=== PATIENT | male | born 1950 | race Caucasian/White ===

== ENCOUNTER 2019-01-18 18:43 | Emergency (ER) | payer MEDICAID ==
[~2019-01-18] VITALS: Ht 162.6 cm; Wt 68.0 kg
--- NOTE | 2019-01-18 18:50 | NUR ---
ED Nurse Note: pt was brought in to ER by ambulance from Dialysis center due to chest pain 05/21. pt aao x4 and calm and cooperative. waiting to be seen by doctor in bed.
[2019-01-18] MEDS ORDERED: Nitroglycerin 2% oint pkt TOPIC ONE (19:00)
--- NOTE | 2019-01-18 19:00 | NUR ---
ED Nurse Note: ERMD at bedside and talking to the pt at this moment.
[2019-01-18] MEDS ORDERED: Morphine Sulfate 4mg/ml Inj (IV USE ONLY) IVP ONE (19:15)
[2019-01-18] MEDS ORDERED: ATORVASTATIN CA10 MG ORAL (19:15)
[2019-01-18] MEDS ORDERED: PLAVIX75 MG ORAL (19:15)
[2019-01-18] MEDS ORDERED: CALCIUM ACETAT667 MG PO (19:15)
[2019-01-18 19:25] VITALS: BP 135/79
--- NOTE | 2019-01-18 19:29 | NUR ---
HAND-OFF: Report given to KEM Adams. no orders have been carried yet.
[2019-01-18 20:05] LABS: BASOPHILS % (AUTO) 1.4 % (0.0-2.0); EOSINOPHILS % (AUTO) 3.6 % (0.0-3.0); HEMATOCRIT 33.9 % (42.0-52.0); HEMOGLOBIN 10.4 G/DL (14.2-18.0); LYMPHOCYTES % (AUTO) 13.9 % (20.0-45.0); MEAN CORPUSCULAR VOLUME 88 FL (80-99); MONOCYTES % (AUTO) 13.6 % (1.0-10.0); NEUTROPHILS % (AUTO) 67.5 % (45.0-75.0); PLATELET COUNT 344 K/UL (150-450); RED BLOOD COUNT 3.86 M/UL (4.70-6.10); RED CELL DISTRIBUTION WIDTH 14.8 % (11.6-14.8); WHITE BLOOD COUNT 4.2 K/UL (4.8-10.8)
[2019-01-18 20:10] LABS: INR 1.1 (0.9-1.1)
[2019-01-18 20:14] LABS: ANION GAP 5 mmol/L (5-15); BLOOD UREA NITROGEN 17 mg/dL (7-18); CALCIUM 9.4 MG/DL (8.5-10.1); CARBON DIOXIDE 34 MMOL/L (21-32); CHLORIDE 98 MMOL/L (98-107); CREATININE 2.8 MG/DL (0.55-1.30); POTASSIUM 3.8 MMOL/L (3.5-5.1); SODIUM 137 MMOL/L (136-145)
[2019-01-18 20:37] LABS: ALANINE AMINOTRANSFERASE 12 U/L (12-78); ALBUMIN 2.9 G/DL (3.4-5.0); ALBUMIN/GLOBULIN RATIO 0.6 (1.0-2.7); ALKALINE PHOSPHATASE 1355 U/L (46-116); ASPARTATE AMINO TRANSFERASE 25 U/L (15-37); BILIRUBIN,TOTAL 2.1 MG/DL (0.2-1.0); CREATINE KINASE 45 U/L (26-308)
[2019-01-18 20:40] LABS: BILIRUBIN,DIRECT 1.3 MG/DL (0.0-0.3)
--- NOTE | 2019-01-18 20:50 | Diagnostic Imaging Report ---
EXAM: XR Chest, 1 View CLINICAL HISTORY: CP TECHNIQUE: Frontal view of the chest. COMPARISON: No relevant prior studies available. FINDINGS: Lungs: Low lung volumes with bronchovascular crowding. No consolidation, pleural effusion, or pneumothorax. Pleural space: See above. Heart: Unremarkable. No cardiomegaly. Mediastinum: Unremarkable. Bones/joints: Sternotomy and mediastinal operative findings. IMPRESSION: 1. Low lung volumes with bronchovascular crowding. 2. No acute cardio pulmonary disease otherwise seen. 3. If there is continued concern recommend PA and lateral chest radiographs
--- NOTE | 2019-01-18 21:27 | NUR ---
Spoke with Brielle - pillowcase cleaner- updated information given- will call us back for MD to MD for possible transfer to [facility].
--- NOTE | 2019-01-18 21:34 | NUR ---
spoke with at [facility]. Will call us with destination and transport information.
[2019-01-18 21:55] VITALS: BP 124/58
--- NOTE | 2019-01-18 21:56 | NUR ---
ER Nurse Note: Pt calm, cooperative, no signs of distress. No complains of pain, n/v. All orders completed per ERMD orders. All safety measures met; will continue to montior.
--- NOTE | 2019-01-18 22:21 | Emergency Room Report ---
History of Present Illness General Chief Complaint: Chest Pain Source: Patient, EMS Present Illness HPI The patient was finishing dialysis and started having left-sided chest pain. He felt it aching and sharp. He was 9/10 radiating towards his left shoulder. Paramedics were summoned and gave the patient aspirin and nitroglycerin. The pain was reduced to a 5/10 and then he refused more pain medication at that time. He denies having heart attacks in the past but also denies having cardiac evaluation recently. There were no other problems with dialysis. He denies fevers or chills. He's been nauseated and not eating well for several days. He denies vomiting recently. He's had increased and urine production recently without dysuria. The patient is a diabetic and has a wound on his left foot. This is been stable and getting local care. He denies any calf pain or edema. Although the patient denies cardiac procedures, he is post CABG based upon his x -ray. Allergies: Coded Allergies: No Known Allergies (Unverified , 01/18/19) Patient History Past Medical History: see triage record Past Surgical History: CABG Social History: Denies: smoking, alcohol use, drug use Social History Narrative assisted living Reviewed Nursing Documentation: PMH: Agreed; PSxH: Agreed Nursing Documentation-PMH Hx Cardiac Problems: Yes - CHF Hx Hypertension: No - dialysis, ESRD Review of Systems All Other Systems: negative except mentioned in HPI Physical Exam Vital Signs Date Time Temp Pulse Resp B/P (MAP) Pulse Ox O2 Delivery O2 Flow Rate FiO2 01/18/19 18:35 98.6 69 18 144/98 99 Room Air Sp02 EP Interpretation: reviewed, normal General Appearance: no apparent distress, GCS 15, Chronically Ill Head: normocephalic, atraumatic Eyes: bilateral eye PERRL, bilateral eye conjunctivae pale ENT: moist mucus membranes Neck: supple Respiratory: chest non-tender, lungs clear, normal breath sounds Cardiovascular #1: regular rate, rhythm, no edema Cardiovascular #2: 2+ radial (R) - thrill upper arm fistula, 2+ radial (L) Gastrointestinal: normal bowel sounds, non tender, soft, no mass Genitourinary: no CVA tenderness Musculoskeletal: back normal, digits/nails normal, no calf tenderness, Kendall's Sign negative Neurologic: oriented x3, grossly normal Psychiatric: mood/affect normal Skin: pallor, other - ulcer L foot Medical Decision Making Diagnostic Impression: Primary Impression: Chest pain Qualified Codes: R07.9 - Chest pain, unspecified Additional Impression: ESRD (end stage renal disease) on dialysis ER Course Patient with high risk factors presents with left-sided chest pain after dialysis relieved in part with aspirin and nitrates. Differential includes acute myocardial infarction, acute coronary syndrome, costochondritis, pneumothorax, pulmonary embolus amongst others. Based on his physical exam: embolus is less likely. Patient will be evaluated with EKG, chest x-ray and labs. Patient be treated with nitrates and morphine. He received aspirin in the field. EKG with left bundle branch block. Chest x-ray with mild reversal of flow and evidence of previous coronary artery bypass graft surgery. Labs significant for negative troponin, normal white count, anemia and elevated BUN/creatinine. In addition BNP is elevated. Patient is pain-free with medication here. However because of the high risk factors the patient needs to have continued observation for acute coronary syndrome. Intermittently bradycardic, unable to give metoprolol. As recent dialysis with heparin, this is also held. The patient was presented to Dr. Gutierrez who accepts the patient in transfer at [facility]. Laboratory Tests Test 01/18/19 19:23 White Blood Count 4.2 K/UL (4.8-10.8) L Red Blood Count 3.86 M/UL (4.70-6.10) L Hemoglobin 10.4 G/DL (14.2-18.0) L Hematocrit 33.9 % (42.0-52.0) L Mean Corpuscular Volume 88 FL (80-99) Mean Corpuscular Hemoglobin 27.0 PG (27.0-31.0) Mean Corpuscular Hemoglobin Concent 30.8 G/DL (32.0-36.0) L Red Cell Distribution Width 14.8 % (11.6-14.8) Platelet Count 344 K/UL (150-450) Mean Platelet Volume 5.5 FL (6.5-10.1) L Neutrophils (%) (Auto) 67.5 % (45.0-75.0) Lymphocytes (%) (Auto) 13.9 % (20.0-45.0) L Monocytes (%) (Auto) 13.6 % (1.0-10.0) H Eosinophils (%) (Auto) 3.6 % (0.0-3.0) H Basophils (%) (Auto) 1.4 % (0.0-2.0) Prothrombin Time 11.7 SEC (9.30-11.50) H Prothrombin Time INR 1.1 (0.9-1.1) PTT 31 SEC (23-33) Sodium Level 137 MMOL/L (136-145) Potassium Level 3.8 MMOL/L (3.5-5.1) Chloride Level 98 MMOL/L (98-107) Carbon Dioxide Level 34 MMOL/L (21-32) H Anion Gap 5 mmol/L (5-15) Blood Urea Nitrogen 17 mg/dL (7-18) Creatinine 2.8 MG/DL (0.55-1.30) H Estimate Glomerular Filtration Rate 22.8 mL/min (>60) Glucose Level 116 MG/DL (74-106) H Calcium Level 9.4 MG/DL (8.5-10.1) Total Bilirubin 2.1 MG/DL (0.2-1.0) H Direct Bilirubin 1.3 MG/DL (0.0-0.3) H Aspartate Amino Transferase (AST) 25 U/L (15-37) Alanine Aminotransferase (ALT) 12 U/L (12-78) Alkaline Phosphatase 1355 U/L (46-116) H Total Creatine Kinase 45 U/L (26-308) Troponin I 0.000 ng/mL (0.000-0.056) Pro-B-Type Natriuretic Peptide > 09411 pg/mL (0-125) H Total Protein 8.0 G/DL (6.4-8.2) Albumin 2.9 G/DL (3.4-5.0) L Globulin 5.1 g/dL Albumin/Globulin Ratio 0.6 (1.0-2.7) L EKG Diagnostic Results Rate: normal Rhythm: NSR ST Segments: no acute changes - Left bundle-branch bloc Rhythm Strip Diag. Results EP Interpretation: yes Rhythm: NSR, no PVC's, no ectopy Chest X-Ray Diagnostic Results Chest X-Ray Diagnostic Results : Chest X-Ray Ordered: Yes # of Views/Limited/Complete: 1 View Indication: Chest Pain EP Interpretation: Yes Interpretation: no effusion, no pneumothorax, other - CABG, increased arellano bilat Impression: Other Electronically Signed by: Electronically signed by Jayson Kramer MD Last Vital Signs Date Time Temp Pulse Resp B/P (MAP) Pulse Ox O2 Delivery O2 Flow Rate FiO2 01/19/19 00:04 98.4 82 18 128/62 100 Room Air Status: improved Disposition: XFER [facility] HOSP Condition: Serious Referrals: [facility],REFERR[facility] (PCP) Jayson Kramer MD Jan 18, 2019 22:21
[2019-01-19 00:04] VITALS: BP 128/62
--- NOTE | 2019-01-19 00:05 | NUR ---
ER Nurse Note: Pt remains calm, a&ox4, VSS. No complains of pain, no difficulty breathing, no n/v noted. Pt is aware of transfer. Bed in lowest postion, all safety measures met. Will continue to montior.
[2019-01-19 02:00] VITALS: BP 126/60
--- NOTE | 2019-01-19 02:00 | NUR ---
ER Nurse Note: Report given to KEM Mora at [facility] for continuity of care. Pt a&ox4, VSS, no signs of distress. Pt has not complained of chest pain, no n/v. IV patent; no signs of infiltration. All belonings taken; left via transportation.
== END 2019-01-19 02:00 | disposition short-term general hospital (02) ==
LOC: EDBD 18:43 → EMR 19:00
DX: I44.7 Left bundle-branch block, unspecified (principal); R07.9 Chest pain, unspecified; N18.6 End stage renal disease; I50.9 Heart failure, unspecified; Z99.2 Dependence on renal dialysis; Z95.1 Presence of aortocoronary bypass graft
CPT/HCPCS: 36415; 71045; 80053; 82248; 82550; 82962; 83880; 84484; 85025; 85610; 85730; 93005; 96374; 99285; J2270